=== PATIENT | female | born 1980 ===

== ENCOUNTER 2016-10-26 22:06 | Emergency (ER) | payer MEDICAID ==
[2016-10-26 22:06] VITALS: BMI 39.6
[2016-10-26 22:28] VITALS: TEMP 98.3; O2SAT 100
[2016-10-26] MEDS ORDERED: Sodium Chloride 0.9% 1,000 ML IV ONE (23:41)
--- NOTE | 2016-10-26 23:41 | C.PDOC ---
History Of Present Illness Patient presents to the ER with a complaint of nausea, vomiting and abdominal pain since 17:00 after eating fried chicken. Patient denies fever, chills or diarrhea. Time Seen by Provider: 10/26/16 23:40 Chief Complaint (Nursing): Abdominal Pain History Per: Patient History/Exam Limitations: no limitations Onset/Duration Of Symptoms: Days (5) Current Symptoms Are (Timing): Still Present Context: Food (Fried Chicken) Severity: Mild Pain Scale Rating Of: 4 Location Of Pain/Discomfort: Diffuse Radiation Of Pain To:: None Quality Of Discomfort: Unable To Describe Associated Symptoms: Nausea, Vomiting. denies: Fever, Chills, Diarrhea Exacerbating Factors: None Alleviating Factors: None Recent travel outside of the [place]: No Abnormal Vaginal Bleeding: No Past Medical History Reviewed: Historical Data, Nursing Documentation, Vital Signs Vital Signs: Last Vital Signs Temp 98.3 F 10/26/16 22:23 Pulse 95 H 10/27/16 01:48 Resp 18 10/27/16 01:48 BP 116/79 10/27/16 01:48 Pulse Ox 100 10/27/16 01:48 - Medical History PMH: No Chronic Diseases Surgical History: Tonsillectomy, - [facility] Procedures BILAT TUBAL DIVISION NEC (12/15/12) LOW CERVICAL (12/15/12) OTH LYSIS-PERITONEAL ADHES (12/15/12) OTHER SKIN & SUBQ I D (07/21/13) TETANUS TOXOID ADMINIST (07/21/13) Family History: States: No Known Family Hx - Social History Hx Tobacco Use: No Hx Alcohol Use: Yes Hx Substance Use: No - Immunization History Hx Tetanus Toxoid Vaccination: No Hx Influenza Vaccination: No Hx Pneumococcal Vaccination: No Review Of Systems Constitutional: Negative for: Fever, Chills Gastrointestinal: Positive for: Nausea, Vomiting, Abdominal Pain. Negative for : Diarrhea Physical Exam - Physical Exam Appears: Non-toxic Skin: Warm, Dry Oral Mucosa: Moist Chest: Symmetrical, No Tenderness Cardiovascular: Rhythm Regular, No Murmur Respiratory: No Rales, No Rhonchi, No Wheezing Gastrointestinal/Abdominal: Soft, Tenderness (Mid epigastric), No Guarding, No Rebound Neurological/Psych: Oriented x3 ED Course And Treatment - Laboratory Results Result Diagrams: 10/26/16 23:44 10/26/16 23:44 O2 Sat by Pulse Oximetry: 100 (Room air) Progress Note: CT abd/pel with IV contrast ordered. Pepcid, zofran and IV fluids administered. Disposition Counseled Patient/Family Regarding: Studies Performed, Diagnosis, Need For Followup, Rx Given - Disposition Referrals: [facility] [Outside] [facility] [Outside] Disposition: HOME/ ROUTINE Disposition Time: 23:41 Condition: FAIR Prescriptions: Metronidazole [Flagyl] 500 mg PO TID #21 tablet Pantoprazole Sodium [Protonix] 20 mg PO DAILY #10 ect Instructions: Abdominal Pain (ED), Gas and Bloating (ED), Gastritis (DC) - Clinical Impression Clinical Impression: Abdominal pain, Gastritis - Scribe Statement The provider has reviewed the documentation as recorded by the Scribnatty Adler All medical record entries made by the Jonahibnatty were at my direction and personally dictated by me. I have reviewed the chart and agree that the record accurately reflects my personal performance of the history, physical exam, medical decision making, and the department course for this patient. I have also personally directed, reviewed, and agree with the discharge instructions and disposition.
[2016-10-26] MEDS ORDERED: Sodium Chloride 0.9% 1,000 ML ONE (23:45)
[2016-10-26 23:46] LABS: BASO # 0.1 K/uL (0.0-0.2); BASO % 0.7 % (0.0-2.0); EOS # 0.1 K/uL (0.0-0.7); EOS % 0.8 % (0.0-4.0); HEMATOCRIT 37.9 % (34.0-47.0); LYMPH # 2.9 K/uL (1.0-4.3); LYMPH % 18.1 % (20.0-40.0); MEAN CELL VOLUME 82.4 fL (81.0-99.0); MEAN CORPUSCULAR HEMOGLOBIN 27.2 pg (27.0-31.0); MEAN CORPUSCULAR HGB CONC 33.1 g/dL (33.0-37.0); MEAN PLATELET VOLUME 10.4 fL (7.2-11.7); MONO # 0.8 K/uL (0.0-0.8); MONO % 4.7 % (0.0-10.0)
[2016-10-26 23:58] LABS: CHLORIDE 100 mmol/L (98-107); POTASSIUM 3.9 mmol/L (3.6-5.2); SODIUM 136 mmol/L (132-148)
[2016-10-27] LABS: URINE BACTERIA FEW (<OCC); URINE BILIRUBIN NEGATIVE (NEGATIVE); URINE BLOOD NEGATIVE (NEGATIVE); URINE COLOR Yellow (YELLOW); URINE GLUCOSE (UA) NORMAL (Normal); URINE KETONE NEGATIVE (NEGATIVE); URINE LEUKOCYTE ESTERASE NEG Leu/uL (Negative); URINE PROTEIN NEGATIVE (NEGATIVE); URINE UROBILINOGEN NORMAL mg/dL (0.2-1.0); WBC URINE 3 /hpf (0-5)
[2016-10-27] LABS: GFR AFRICAN-AMERICAN > 60
[2016-10-27 00:01] LABS: ALB/GLOB RATIO 1.4 (1.0-2.1); ALKALINE PHOSPHATASE 78 U/L (38-126); ALT/SGPT 21 U/L (9-52); AST/SGOT 15 U/L (14-36); BILIRUBIN,TOTAL 0.5 mg/dL (0.2-1.3); BLOOD UREA NITROGEN 17 mg/dL (7-17); CARBON DIOXIDE 24 mmol/L (22-30); GLUCOSE,RANDOM 120 mg/dL (65-105); TOTAL PROTEIN 7.6 g/dL (6.3-8.3)
--- NOTE | 2016-10-27 01:37 | CT ---
EXAM: CT Abdomen and Pelvis With Intravenous Contrast CLINICAL HISTORY: 36 years old, female; Pain; Abdominal pain; Generalized; Additional info: Mid epigastric pain, HX hernia repair TECHNIQUE: Axial computed tomography images of the abdomen and pelvis with intravenous contrast. This CT exam was performed using one or more of the following dose reduction techniques: automated exposure control, adjustment of the mA and/or kV according to patient size, and/or use of iterative reconstruction technique. Coronal and sagittal reformatted images were created and reviewed. CONTRAST: 100 mL of VISIPAQUE 320 administered intravenously. EXAM DATE/TIME: 10/27/2016 12:09 AM COMPARISON: There are no prior studies for comparison. FINDINGS: Lower thorax: Heart size is normal urea there is atelectasis and scarring at the lung bases. There is a small hiatal hernia. ABDOMEN: Liver: unremarkable Gallbladder and bile ducts: The gallbladder is distended. There is a small calcified gallstone. Common bile duct is unremarkable. Pancreas: unremarkable Spleen: Spleen is unremarkable. There is an accessory spleen in the left upper quadrant. Adrenals: unremarkable Kidneys and ureters: unremarkable Stomach and bowel: Stomach is almost empty. Rotation is normal. Small bowel is mildly distended with fluid and air. There is no obstruction. Terminal ileum is unremarkable. Appendix is unremarkable.Colon is incompletely distended which limits evaluation. Appendix: See stomach and bowel PELVIS: Bladder: unremarkable Reproductive: Uterus and adnexal structures are unremarkable. ABDOMEN and PELVIS: Intraperitoneal space: There is no significant fluid.There is no free air. Bones/joints: There are early degenerative changes in the osseus structures. Soft tissues: There is a fat containing umbilical hernia. There is rectus diastases. Vasculature: Vascular structures are unremarkable. There are calcified phleboliths. Lymph nodes: There is shotty mesenteric adenopathy IMPRESSION: No acute solid visceral abnormality; mild ileus, no obstruction; distended gallbladder with small stone; rectus diastases and umbilical hernia Additional findings as described above.
[2016-10-27 01:49] VITALS: BP 116/79; PULSE 95; RESP 18
== END 2016-10-27 02:04 | disposition home or self-care (01) ==
LOC: C.ER 22:06
DX: K29.70 Gastritis, unspecified, without bleeding (principal); R10.13 Epigastric pain
CPT/HCPCS: 74177; 80053; 81001; 83690; 84703; 85025; 96361; 96374; 96375; 99284; J2405; J7040; Q9967

== ENCOUNTER 2016-10-31 02:24 | Emergency (ER) | payer MEDICAID ==
[2016-10-31 02:25] VITALS: BMI 39.6
[2016-10-31 02:34] VITALS: RESP 20; O2SAT 100
[2016-10-31] MEDS ORDERED: Belladonna-Phenobarbital ONE (02:55)
[2016-10-31] MEDS ORDERED: Aluminum Hydroxide/Magnesium Hydroxide Susp (30 mL) ONE (02:55)
[2016-10-31] MEDS ORDERED: Sodium Chloride 0.9% 1,000 ML ONE (02:56)
[2016-10-31] MEDS: Belladonna-Phenobarbital PO STA (03:09)
[2016-10-31] MEDS: Aluminum Hydroxide/Magnesium Hydroxide Susp (30 mL) PO STA (03:09)
[2016-10-31] MEDS: Sodium Chloride 0.9% 1,000 ML IV ONE (03:09)
--- NOTE | 2016-10-31 03:15 | C.PDOC ---
History Of Present Illness 36 year old female presents to ED with complaints of epigastric abdominal pain associated with nausea for few hours. Patient reports pain feels burning and sensation of bloating or knot in stomach. Patient states she was seen in ED few days ago for similar symptoms and has been taking the medications given. She denies any fever, vomiting, diarrhea, dysuria. Time Seen by Provider: 10/31/16 02:37 Chief Complaint (Nursing): Abdominal Pain History Per: Patient History/Exam Limitations: no limitations Onset/Duration Of Symptoms: Hrs (few hours) Current Symptoms Are (Timing): Still Present Context: Other Severity: Mild Pain Scale Rating Of: 3 Location Of Pain/Discomfort: Epigastric Radiation Of Pain To:: None Quality Of Discomfort: Burning, "Pain", Other (bloating sensation) Associated Symptoms: Nausea Exacerbating Factors: None Alleviating Factors: None Last Bowel Movement: Today Recent travel outside of the [place]: No Past Medical History Reviewed: Historical Data, Nursing Documentation, Vital Signs Vital Signs: Last Vital Signs Temp 97.6 F 10/31/16 02:32 Pulse 89 10/31/16 02:32 Resp 20 10/31/16 02:32 BP 132/84 10/31/16 02:32 Pulse Ox 100 10/31/16 04:28 Surgical History: Tonsillectomy, - [facility] Procedures BILAT TUBAL DIVISION NEC (12/15/12) LOW CERVICAL (12/15/12) OTH LYSIS-PERITONEAL ADHES (12/15/12) OTHER SKIN & SUBQ I D (07/21/13) TETANUS TOXOID ADMINIST (07/21/13) Family History: States: Unknown Family Hx - Social History Hx Tobacco Use: No Hx Alcohol Use: Yes Hx Substance Use: No - Immunization History Hx Tetanus Toxoid Vaccination: No Hx Influenza Vaccination: No Hx Pneumococcal Vaccination: No Review Of Systems Except As Marked, All Systems Reviewed And Found Negative. Constitutional: Negative for: Fever Gastrointestinal: Positive for: Nausea, Abdominal Pain (epigastric). Negative for: Vomiting Genitourinary: Negative for: Dysuria Physical Exam - Physical Exam Appears: Non-toxic, No Acute Distress Skin: Warm, Dry Head: Atraumatic, Normacephalic Neck: Normal ROM, Supple Chest: Symmetrical Cardiovascular: Rhythm Regular Respiratory: Normal Breath Sounds, No Rales, No Rhonchi, No Wheezing Gastrointestinal/Abdominal: Soft, Tenderness (epigastric), No Guarding, No Rebound Back: Normal Inspection, No CVA Tenderness Extremity: Normal ROM Neurological/Psych: Oriented x3, Normal Speech, Normal Cognition Gait: Steady ED Course And Treatment - Laboratory Results Result Diagrams: 10/31/16 03:12 10/31/16 03:12 O2 Sat by Pulse Oximetry: 100 (room air) Pulse Ox Interpretation: Normal Medical Decision Making Medical Decision Making: Impression: 36 y/o female with epigastric abdominal pain Plan: * Labs * IV NS * Obstructive series xray Prior record reviewed, patient was last seen 10/26/16 for abdominal pain with labs and CT performed. Patient was discharged with Rx Protonix and Flagyl Progress: Labs reviewed and unremarkable, improved WBC since last ER visit. XRay shows fecal retention, no air fluid levels or other abnormality. Upon reevaluation patient reports pain has much improved and admits she has had hard stools, no rectal pain. Will prescribe colace and recommend increase in fluids, fiber and exercise. Patient feels comfortable going home and will be discharged. Patient given follow up instructions. Disposition Counseled Patient/Family Regarding: Studies Performed, Diagnosis, Need For Followup, Rx Given - Disposition Referrals: [facility] [Outside] [facility] [Outside] Disposition: HOME/ ROUTINE Disposition Time: 04:15 Condition: IMPROVED Additional Instructions: Continue taking the protonix and flagyl as prescribed Take stool softener up to 3 times per day to help with bowel movements Drink plenty of water and increase fiber intake Follow up with your primary medical doctor or clinic Prescriptions: Docusate [Colace] 100 mg PO Q8 PRN #60 cap PRN Reason: Constipation Instructions: Constipation (DC), Diet for Ulcers and Gastritis (ED) - POA Present On Arrival: None - Clinical Impression Clinical Impression: Gastritis, Constipation, Epigastric abdominal pain - PA / ELEVATOR TECHNICIAN / Resident Statement MD/DO has reviewed & agrees with the documentation as recorded. - Scribe Statement The provider has reviewed the documentation as recorded by the Scribe Shirley Costa All medical record entries made by the Scribe were at my direction and personally dictated by me. I have reviewed the chart and agree that the record accurately reflects my personal performance of the history, physical exam, medical decision making, and the department course for this patient. I have also personally directed, reviewed, and agree with the discharge instructions and disposition.
[2016-10-31 03:18] LABS: BASO # 0.1 K/uL (0.0-0.2); BASO % 0.9 % (0.0-2.0); EOS # 0.2 K/uL (0.0-0.7); HEMATOCRIT 39.4 % (34.0-47.0); LYMPH # 2.8 K/uL (1.0-4.3); LYMPH % 28.2 % (20.0-40.0); MEAN CELL VOLUME 83.3 fL (81.0-99.0); MEAN CORPUSCULAR HEMOGLOBIN 27.1 pg (27.0-31.0); MEAN CORPUSCULAR HGB CONC 32.5 g/dL (33.0-37.0); MEAN PLATELET VOLUME 10.6 fL (7.2-11.7); MONO # 0.6 K/uL (0.0-0.8); MONO % 5.7 % (0.0-10.0)
[2016-10-31 03:26] LABS: CHLORIDE 102 mmol/L (98-107); POTASSIUM 3.8 mmol/L (3.6-5.2); SODIUM 138 mmol/L (132-148)
[2016-10-31 03:28] LABS: BILIRUBIN,TOTAL 0.7 mg/dL (0.2-1.3); GFR AFRICAN-AMERICAN > 60
[2016-10-31 03:29] LABS: ALB/GLOB RATIO 1.5 (1.0-2.1); ALKALINE PHOSPHATASE 90 U/L (38-126); ALT/SGPT 28 U/L (9-52); AST/SGOT 59 U/L (14-36); BLOOD UREA NITROGEN 18 mg/dL (7-17); CALCIUM 8.6 mg/dl (8.6-10.4); CARBON DIOXIDE 25 mmol/L (22-30); GLUCOSE,RANDOM 124 mg/dL (65-105); TOTAL PROTEIN 6.9 g/dL (6.3-8.3)
[2016-10-31 03:57] LABS: RBC URINE 2 /hpf (0-3); URINE BACTERIA OCC (<OCC); URINE BILIRUBIN NEGATIVE (NEGATIVE); URINE BLOOD NEGATIVE (NEGATIVE); URINE COLOR Yellow (YELLOW); URINE GLUCOSE (UA) NORMAL (Normal); URINE KETONE TRACE mg/dL (NEGATIVE); URINE LEUKOCYTE ESTERASE 1+ Leu/uL (Negative); URINE PROTEIN NEGATIVE (NEGATIVE); URINE UROBILINOGEN NORMAL mg/dL (0.2-1.0); WBC URINE 11 /hpf (0-5)
[2016-10-31 04:33] VITALS: BP 103/66; PULSE 67; TEMP 98
--- NOTE | 2016-10-31 08:34 | RAD ---
PROCEDURE: Radiographs of the chest and abdomen (obstructive series) HISTORY: abd pain COMPARISON: No prior. TECHNIQUE: AP radiograph of the chest, with upright and supine radiographs of the abdomen. FINDINGS: CHEST: Lungs: Clear. Cardiovascular: Normal size heart. No pulmonary vascular congestion. Pleura: No pleural fluid. No pneumothorax. Other findings: None. ABDOMEN AND PELVIS: Bowel: Moderate retained feces. No evidence of bowel obstruction. No hepatic or splenic enlargement. Free air: None. Bones: Unremarkable. Other findings: None. IMPRESSION: Moderate retained feces. Possible constipation. Otherwise unremarkable.
== END 2016-10-31 04:45 | disposition home or self-care (01) ==
LOC: C.ER 02:24
DX: K29.70 Gastritis, unspecified, without bleeding (principal); K59.00 Constipation, unspecified
CPT/HCPCS: 74022; 80053; 81001; 83690; 85025; 96361; 96374; 96375; 99284; J2405; J7040

== ENCOUNTER 2017-01-18 06:19 | Day surgery (SDC) | payer MEDICAID ==
[2017-01-18 06:46] VITALS: BMI 34.9
[2017-01-18] MEDS ORDERED: Propofol 10 mg/ml Inj (20 ML) ONE (07:55)
[2017-01-18] MEDS ORDERED: Lactated Ringer's 500 ML IV SCH (08:15)
[2017-01-18 08:22] VITALS: TEMP 98.9
[2017-01-18 08:38] VITALS: O2SAT 100
[2017-01-18 09:16] VITALS: BP 110/80; PULSE 69; RESP 18
== END 2017-01-18 09:12 | disposition home or self-care (01) ==
LOC: C.ENDO 06:19
PROVIDERS: ATTEND Internal Medicine
DX: K29.50 Unspecified chronic gastritis without bleeding (principal); K21.9 Gastro-esophageal reflux disease without esophagitis; K59.00 Constipation, unspecified; K80.20 Calculus of gallbladder without cholecystitis without obstruction; R01.1 Cardiac murmur, unspecified; Z98.890 Other specified postprocedural states; Z98.51 Tubal ligation status; Z79.899 Other long term (current) drug therapy
CPT/HCPCS: 43239; 84703; 88305; J2704; J3010; J7120

== ENCOUNTER 2017-01-19 20:10 | Emergency (ER) | payer MEDICAID ==
[2017-01-19 20:10] VITALS: BMI 34.9
[2017-01-19 20:29] VITALS: TEMP 98.2; O2SAT 100
[2017-01-19] MEDS ORDERED: Sodium Chloride 0.9% 1,000 ML IV ONE (20:37)
[2017-01-19] MEDS ORDERED: Sodium Chloride 0.9% 250 ML IV ONE (20:47)
[2017-01-19] MEDS ORDERED: Sodium Chloride 0.9% 1,000 ML ONE (20:47)
--- NOTE | 2017-01-19 20:48 | C.PDOC ---
History Of Present Illness 36 year old female presents to the ED with complaints of chills and epigastric pain that radiates to both sides of the upper backc. Patient notes a history of gall bladder disease and abdominal pain. She was last seen in ED in October 2016 and referred to a melter loader. Patient was scheduled to have gall bladder removed and had an upper endoscopy yesterday. Endoscopy showed diffuse gastritis and a work up was performed to rule out H. pylori and Celiac disease. Patient's work up was negative and patient was instructed to follow a bland diet upon discharge home. She was able to tolerate bland chicken and rice today. Patient denies fever, nausea, or vomiting. Time Seen by Provider: 01/19/17 20:30 Chief Complaint (Nursing): Abdominal Pain History Per: Patient History/Exam Limitations: no limitations Onset/Duration Of Symptoms: Persistent Current Symptoms Are (Timing): Still Present Location Of Pain/Discomfort: Epigastric Radiation Of Pain To:: Back Quality Of Discomfort: "Pain" Associated Symptoms: Chills. denies: Fever, Nausea, Vomiting, Diarrhea Recent travel outside of the [place]: No Additional History Per: Prior Records Abnormal Vaginal Bleeding: No Past Medical History Reviewed: Historical Data, Nursing Documentation, Vital Signs Vital Signs: Last Vital Signs Temp 98.2 F 01/19/17 20:25 Pulse 89 01/19/17 20:25 Resp 20 01/19/17 20:25 BP 130/87 01/19/17 20:25 Pulse Ox 100 01/19/17 20:51 - Medical History PMH: Gastritis Surgical History: Tonsillectomy, - [facility] Procedures BILAT TUBAL DIVISION NEC (12/15/12) LOW CERVICAL (12/15/12) OTH LYSIS-PERITONEAL ADHES (12/15/12) OTHER SKIN & SUBQ I D (07/21/13) TETANUS TOXOID ADMINIST (07/21/13) Family History: States: Unknown Family Hx - Social History Hx Tobacco Use: No Hx Alcohol Use: Yes Hx Substance Use: No - Immunization History Hx Tetanus Toxoid Vaccination: No Hx Influenza Vaccination: No Hx Pneumococcal Vaccination: No Review Of Systems Constitutional: Positive for: Chills. Negative for: Fever Cardiovascular: Negative for: Chest Pain, Palpitations Respiratory: Negative for: Cough, Shortness of Breath Gastrointestinal: Positive for: Abdominal Pain. Negative for: Nausea, Vomiting , Diarrhea Musculoskeletal: Positive for: Back Pain Physical Exam - Physical Exam Appears: Non-toxic, No Acute Distress Skin: Warm, Dry Head: Atraumatic Eye(s): bilateral: Normal Inspection, EOMI Oral Mucosa: Moist Neck: Supple Chest: Symmetrical, No Deformity Cardiovascular: Rhythm Regular Respiratory: Normal Breath Sounds, No Rhonchi, No Wheezing Gastrointestinal/Abdominal: Bowel Sounds (good bowel sounds), Soft, Tenderness ( center epigastric tenderness), No Distention, No Guarding, No Rebound Back: No CVA Tenderness, No Vertebral Tenderness, No Paraspinal Tenderness Extremity: Normal ROM, No Tenderness Neurological/Psych: Oriented x3, Normal Speech, Normal Cognition ED Course And Treatment - Laboratory Results Result Diagrams: 01/19/17 20:59 01/19/17 20:59 Lab Interpretation: Normal O2 Sat by Pulse Oximetry: 100 (room air ) Pulse Ox Interpretation: Normal Progress Note: Labs were ordered and patient was given Pepcid and IV fluids. Reevaluation Time: 21:55 Reassessment Condition: Improved (Feels better after Pepcid and IV fluids) Disposition - Disposition Disposition: HOME/ ROUTINE Disposition Time: 21:56 Condition: IMPROVED Instructions: Epigastric Pain (ED) Forms: [facility] (Occitan), General Discharge Instructions - Clinical Impression Clinical Impression: Epigastric abdominal pain, Status post endoscopy - Scribe Statement The provider has reviewed the documentation as recorded by the Scribnatty Syed All medical record entries made by the Jonahibe were at my direction and personally dictated by me. I have reviewed the chart and agree that the record accurately reflects my personal performance of the history, physical exam, medical decision making, and the department course for this patient. I have also personally directed, reviewed, and agree with the discharge instructions and disposition.
[2017-01-19 21:03] LABS: BASO # 0.1 K/uL (0.0-0.2); BASO % 0.9 % (0.0-2.0); EOS # 0.2 K/uL (0.0-0.7); HEMATOCRIT 38.4 % (34.0-47.0); LYMPH # 4.1 K/uL (1.0-4.3); LYMPH % 36.1 % (20.0-40.0); MEAN CELL VOLUME 82.3 fL (81.0-99.0); MEAN CORPUSCULAR HEMOGLOBIN 27.4 pg (27.0-31.0); MEAN CORPUSCULAR HGB CONC 33.2 g/dL (33.0-37.0); MEAN PLATELET VOLUME 10.4 fL (7.2-11.7); MONO # 0.7 K/uL (0.0-0.8); MONO % 6.4 % (0.0-10.0); RED CELL DISTRIBUTION WIDTH 14.6 % (11.5-14.5); WHITE BLOOD COUNT 11.4 K/uL (4.8-10.8)
[2017-01-19 21:09] LABS: CHLORIDE 102 mmol/L (98-107)
[2017-01-19 21:10] LABS: SODIUM 140 mmol/L (132-148)
[2017-01-19 21:11] LABS: POTASSIUM 3.9 mmol/L (3.6-5.2)
[2017-01-19 21:13] LABS: ALB/GLOB RATIO 1.2 (1.0-2.1); ALKALINE PHOSPHATASE 75 U/L (38-126); ALT/SGPT 25 U/L (9-52); AST/SGOT 14 U/L (14-36); BILIRUBIN,TOTAL 0.5 mg/dL (0.2-1.3); BLOOD UREA NITROGEN 16 mg/dL (7-17); CARBON DIOXIDE 25 mmol/L (22-30); GFR AFRICAN-AMERICAN > 60; TOTAL PROTEIN 7.6 g/dL (6.3-8.3)
[2017-01-19 21:14] LABS: CALCIUM 9.5 mg/dl (8.6-10.4); GLUCOSE,RANDOM 82 mg/dL (65-105)
[2017-01-19 22:06] VITALS: BP 110/75; PULSE 72; RESP 16
== END 2017-01-19 22:20 | disposition home or self-care (01) ==
LOC: C.ER 20:10
DX: R10.13 Epigastric pain (principal); Z98.890 Other specified postprocedural states
CPT/HCPCS: 80053; 83690; 85025; 96361; 96374; 99284; J7040

== ENCOUNTER 2017-07-27 09:27 | Emergency (ER) | payer MEDICAID ==
[2017-07-27 09:40] VITALS: BMI 36.2
[2017-07-27 09:42] VITALS: BP 134/83; PULSE 83; RESP 18; TEMP 98; O2SAT 98
--- NOTE | 2017-07-27 10:02 | C.PDOC ---
History Of Present Illness Pt states she has a painful lump on left leg that got better but still a little painful. Time Seen by Provider: 07/27/17 09:44 Chief Complaint (Nursing): Abnormal Skin Integrity History Per: Patient Onset/Duration Of Symptoms: Days (about 1 week) Current Symptoms Are (Timing): Better Location Of Injury: Left: Leg Quality Of Symptoms: Painful, Itching, Swollen, Draining Severity: Mild Additional History Per: Prior Records Past Medical History Reviewed: Historical Data, Nursing Documentation, Vital Signs Vital Signs: Last Vital Signs Temp 98.0 F 07/27/17 09:38 Pulse 83 07/27/17 09:38 Resp 18 07/27/17 09:38 BP 134/83 07/27/17 09:38 Pulse Ox 98 07/27/17 09:38 - Medical History PMH: No Chronic Diseases, Gastritis Surgical History: Tonsillectomy, - [facility] Procedures BILAT TUBAL DIVISION NEC (12/15/12) LOW CERVICAL (12/15/12) OTH LYSIS-PERITONEAL ADHES (12/15/12) OTHER SKIN & SUBQ I D (07/21/13) TETANUS TOXOID ADMINIST (07/21/13) Family History: States: Unknown Family Hx - Social History Hx Tobacco Use: No Hx Alcohol Use: Yes Hx Substance Use: No - Immunization History Hx Tetanus Toxoid Vaccination: No Hx Influenza Vaccination: No Hx Pneumococcal Vaccination: No Review Of Systems Except As Marked, All Systems Reviewed And Found Negative. Constitutional: Negative for: Fever, Weakness Cardiovascular: Negative for: Chest Pain Respiratory: Negative for: Shortness of Breath Gastrointestinal: Negative for: Vomiting, Abdominal Pain Musculoskeletal: Negative for: Neck Pain, Foot Pain Neurological: Negative for: Weakness, Numbness Physical Exam - Physical Exam Appears: Non-toxic, No Acute Distress Skin: Normal Color, Warm, Dry Head: Atraumatic, Normacephalic Eye(s): bilateral: Normal Inspection, PERRL, EOMI Neck: Normal ROM, Supple Extremity: Normal ROM, No Calf Tenderness, Capillary Refill (wnl), Other (small area of induration on left lateral lower leg with a center on a hair follicle) Pulses: Left Dorsalis Pedis: Normal Neurological/Psych: Oriented x3, Normal Motor, Normal Sensation ED Course And Treatment O2 Sat by Pulse Oximetry: 98 Pulse Ox Interpretation: Normal Progress Note: I lanced the lesion on left leg with a 19g needle after cleaning with Betadine, however no discharge was expressed. Disposition Counseled Patient/Family Regarding: Diagnosis, Need For Followup, Rx Given - Disposition Disposition: HOME/ ROUTINE Disposition Time: 10:03 Condition: STABLE Additional Instructions: Follow up with your doctor. Return to the ER if you develop fever, chills, redness, swelling, worsening of symptoms or if you have any other concerns. Prescriptions: Sulfamethoxazole/Trimethoprim [Bactrim DS 800 mg-160 mg] 1 tab PO BID #14 tab Instructions: Boil (DC) Forms: [facility] (Spanish) - Clinical Impression Clinical Impression: Skin lesion of left leg
== END 2017-07-27 10:17 | disposition home or self-care (01) ==
LOC: C.ER 09:27
DX: L98.9 Disorder of the skin and subcutaneous tissue, unspecified (principal)

== ENCOUNTER 2017-11-04 20:45 | Emergency (ER) | payer MEDICAID ==
[2017-11-04 20:45] VITALS: BMI 34.9
[2017-11-04 21:09] VITALS: BP 136/85; PULSE 82; RESP 20; TEMP 98.2; O2SAT 100
--- NOTE | 2017-11-04 21:44 | C.PDOC ---
History Of Present Illness 37 yo female c/o right foot pain since yesterday. PT notes she was going down the stairs and twisted her foot and heard a "pop". Notes she felt ok at the time but foot became more swollen prompting ED visit. No change in sensation. No other injury. Time Seen by Provider: 11/04/17 21:15 Chief Complaint (Nursing): Lower Extremity Problem/Injury History Per: Patient History/Exam Limitations: no limitations Onset/Duration Of Symptoms: Days (1) Current Symptoms Are (Timing): Still Present Recent travel outside of the [place]: No Additional History Per: Patient - Ankle/Foot Description Of Injury: Twisted Currently Unable To: Bend Or Move Past Medical History Reviewed: Historical Data, Nursing Documentation, Vital Signs Vital Signs: Last Vital Signs Temp 98.2 F 11/04/17 21:05 Pulse 82 11/04/17 21:05 Resp 20 11/04/17 21:05 BP 136/85 11/04/17 21:05 Pulse Ox 100 11/04/17 22:14 - Medical History PMH: Gastritis Denies: Chronic Kidney Disease Surgical History: Tonsillectomy, - [facility] Procedures BILAT TUBAL DIVISION NEC (12/15/12) LOW CERVICAL (12/15/12) OTH LYSIS-PERITONEAL ADHES (12/15/12) OTHER SKIN & SUBQ I D (07/21/13) TETANUS TOXOID ADMINIST (07/21/13) Family History: States: Unknown Family Hx - Social History Hx Tobacco Use: No Hx Alcohol Use: Yes Hx Substance Use: No - Immunization History Hx Tetanus Toxoid Vaccination: No Hx Influenza Vaccination: No Hx Pneumococcal Vaccination: No Review Of Systems Except As Marked, All Systems Reviewed And Found Negative. Constitutional: Negative for: Fever, Chills Gastrointestinal: Negative for: Nausea, Vomiting Musculoskeletal: Positive for: Foot Pain Neurological: Negative for: Weakness, Numbness, Headache, Dizziness Physical Exam - Physical Exam Appears: Well, Non-toxic, No Acute Distress Skin: Warm, Dry Head: Atraumatic, Normacephalic Eye(s): bilateral: Normal Inspection, EOMI Nose: Normal Neck: Normal, Supple Chest: Symmetrical Respiratory: No Accessory Muscle Use Back: Normal Inspection Extremity: Normal ROM, Tenderness ((+) lateral foot tenderness with swelling and ecchymosis ), Capillary Refill (< 2 sec), Swelling Extremity: Bilateral: Normal ROM Pulses: Left Dorsalis Pedis: Normal, Right Dorsalis Pedis: Normal Neurological/Psych: Oriented x3, Normal Speech, Normal Motor, Normal Sensation ED Course And Treatment O2 Sat by Pulse Oximetry: 100 (ON RA) Pulse Ox Interpretation: Normal Progress Note: Pt declined pain medication. Hugh wrap and cast shoe applied. Pt declined crutches. Instructed RICE and follow up with ortho in 1-2 days. Disposition - Disposition Referrals: Henok Gonzalez III, MD [Staff Provider] - Disposition: HOME/ ROUTINE Disposition Time: 21:43 Condition: STABLE Additional Instructions: Rest, ice and elevate. Follow up with bone doctor in 1-2 days. Return to ER if symptoms persist or worsen. Instructions: Foot Sprain (DC) Forms: [facility] (Lithuanian), Work Excuse - Clinical Impression Clinical Impression: Foot sprain
--- NOTE | 2017-11-05 09:01 | RAD ---
PROCEDURE: Right Foot Radiographs. HISTORY: trauma COMPARISON: None. FINDINGS: BONES: Inferior calcaneal spur. . No fracture. JOINTS: Normal. SOFT TISSUES: Possible minimal lateral soft tissue swelling midfoot level OTHER FINDINGS: None. IMPRESSION: No fracture. Inferior calcaneal spur
== END 2017-11-04 22:06 | disposition home or self-care (01) ==
LOC: C.ER 20:45
DX: S93.601A Unspecified sprain of right foot, initial encounter (principal); X50.1XXA Overexertion from prolonged static or awkward postures, initial encounter; Y92.89 Other specified places as the place of occurrence of the external cause

== ENCOUNTER 2017-11-06 20:12 | Emergency (ER) | payer MEDICAID ==
[2017-11-06 20:13] VITALS: BMI 34.9
[2017-11-06 20:42] VITALS: RESP 20; O2SAT 100
--- NOTE | 2017-11-06 21:26 | C.PDOC ---
History Of Present Illness 37 y/o female presents to ED with c/o epigastric abdominal pain developed after having cheeseburger earlier today. Patient states pain radiates outward and is worse with movement. Patient admits to nausea and denies vomiting, diarrhea, back pain, fever, chills or any other complaints at this time. Time Seen by Provider: 11/06/17 21:06 Chief Complaint (Nursing): Abdominal Pain History Per: Patient History/Exam Limitations: no limitations Onset/Duration Of Symptoms: Days Current Symptoms Are (Timing): Still Present Location Of Pain/Discomfort: Epigastric Past Medical History Reviewed: Historical Data, Nursing Documentation, Vital Signs Vital Signs: Last Vital Signs Temp 97.7 F 11/06/17 22:32 Pulse 76 11/06/17 22:32 Resp 20 11/06/17 22:32 BP 113/73 11/06/17 22:32 Pulse Ox 100 11/06/17 22:36 - Medical History PMH: Gastritis Surgical History: Tonsillectomy, - [facility] BILAT TUBAL DIVISION NEC (12/15/12) LOW CERVICAL (12/15/12) OTH LYSIS-PERITONEAL ADHES (12/15/12) OTHER SKIN & SUBQ I D (07/21/13) TETANUS TOXOID ADMINIST (07/21/13) Family History: States: No Known Family Hx - Social History Hx Tobacco Use: No Hx Alcohol Use: Yes Hx Substance Use: No - Immunization History Hx Tetanus Toxoid Vaccination: No Hx Influenza Vaccination: No Hx Pneumococcal Vaccination: No Review Of Systems Constitutional: Negative for: Fever, Chills Gastrointestinal: Positive for: Nausea, Abdominal Pain. Negative for: Vomiting , Diarrhea Genitourinary: Negative for: Dysuria Musculoskeletal: Negative for: Back Pain Skin: Negative for: Rash Physical Exam - Physical Exam Appears: Non-toxic, No Acute Distress Skin: Warm, Dry, No Rash Head: Atraumatic, Normacephalic Eye(s): bilateral: Normal Inspection Oral Mucosa: Moist Neck: Normal ROM, Supple Cardiovascular: Rhythm Regular Respiratory: Normal Breath Sounds, No Rales, No Rhonchi, No Wheezing Gastrointestinal/Abdominal: Soft, Tenderness (Epigastric and RUQ), No Guarding, No Rebound Back: No CVA Tenderness, No Paraspinal Tenderness Neurological/Psych: Oriented x3, Normal Speech, Normal Cognition ED Course And Treatment - Laboratory Results Result Diagrams: 11/06/17 21:24 11/06/17 21:24 Lab Interpretation: No Acute Changes O2 Sat by Pulse Oximetry: 100 (RA) Pulse Ox Interpretation: Normal - CT Scan/US Abdominal US Other Rad Studies (CT/US): Read By Radiologist, Radiology Report Reviewed CT/US Interpretation: EXAM: US Abdomen Complete. CLINICAL HISTORY: 37 years old, female; Pain; Abdominal pain; Epigastric; Additional info: Abd pain. TECHNIQUE: Real-time ultrasound of the abdomen (complete) with image documentation. COMPARISON: CT - ABD PELVIS IV CONTRAST ONLY 2016-10-27 01:05. FINDINGS: Liver: Unremarkable. No mass. No intrahepatic bile duct dilation. 14.3 cm. Gallbladder: Solitary mobile gallstone. Common bile duct: Unremarkable as visualized. No stones. 3.7 mm. Pancreas: Unremarkable as visualized. Kidneys: Unremarkable. No stones. No solid mass. No hydronephrosis. RIGHT 11 cm x 4.5 cm x 4.5 cm. LEFT 4.5 cm x 5.1 cm x 10.5 cm. Spleen: Unremarkable. No splenomegaly. 9.8 cm. Aorta: Unremarkable. No aneurysm. 1.5 cm in. Inferior vena cava: Unremarkable. IMPRESSION: 1. Solitary gallstone. 2. Otherwise negative abdominal ultrasound. Reevaluation Time: 22:48 Reassessment Condition: Improved (after Bentyl.) Disposition Counseled Patient/Family Regarding: Studies Performed, Diagnosis, Need For Followup, Rx Given - Disposition Referrals: [facility] [Outside] Disposition: HOME/ ROUTINE Disposition Time: 22:53 Condition: IMPROVED Prescriptions: Dicyclomine [Bentyl] 20 mg PO QID PRN #20 tab PRN Reason: Pain, Severe (8-10) Instructions: Gallstones Forms: [facility] (American) - Clinical Impression Clinical Impression: Biliary colic - Scribe Statement The provider has reviewed the documentation as recorded by the Dayanara Cota All medical record entries made by the Jonahibnatty were at my direction and personally dictated by me. I have reviewed the chart and agree that the record accurately reflects my personal performance of the history, physical exam, medical decision making, and the department course for this patient. I have also personally directed, reviewed, and agree with the discharge instructions and disposition.
[2017-11-06 21:28] LABS: BASO # 0.1 K/uL (0.0-0.2); BASO % 1.2 % (0.0-2.0); EOS # 0.2 K/uL (0.0-0.7); EOS % 2.7 % (0.0-4.0); HEMOGLOBIN 11.5 g/dL (11.0-16.0); LYMPH # 3.4 K/uL (1.0-4.3); LYMPH % 39.2 % (20.0-40.0); MEAN CORPUSCULAR HEMOGLOBIN 25.4 pg (27.0-31.0); MEAN CORPUSCULAR HGB CONC 32.6 g/dL (33.0-37.0); MEAN PLATELET VOLUME 9.9 fL (7.2-11.7); MONO # 0.5 K/uL (0.0-0.8); MONO % 6.2 % (0.0-10.0); NEUT # 4.4 K/uL (1.8-7.0); NEUT % 50.7 % (50.0-75.0); NRBC % 0.1 % (0.0-2.0); RBC 4.54 Mil/uL (3.80-5.20); RED CELL DISTRIBUTION WIDTH 16.6 % (11.5-14.5); WHITE BLOOD COUNT 8.8 K/uL (4.8-10.8)
[2017-11-06 21:35] LABS: MEAN CELL VOLUME 77.8 fL (81.0-99.0)
[2017-11-06 21:38] LABS: SQUAMOUS EPITHIAL 9 /hpf (0-5); URINE BACTERIA FEW (<OCC); URINE BILIRUBIN NEGATIVE (NEGATIVE); URINE BLOOD NEGATIVE (NEGATIVE); URINE CLARITY Hazy (Clear); URINE COLOR Yellow (YELLOW); URINE GLUCOSE (UA) NORMAL (Normal); URINE LEUKOCYTE ESTERASE 1+ Leu/uL (Negative); URINE PROTEIN NEGATIVE (NEGATIVE); URINE UROBILINOGEN NORMAL mg/dL (0.2-1.0)
[2017-11-06 21:41] LABS: ALB/GLOB RATIO 1.4 (1.0-2.1); ALBUMIN 4.1 g/dL (3.5-5.0); ALT/SGPT 18 U/L (9-52); AST/SGOT 16 U/L (14-36); BLOOD UREA NITROGEN 15 mg/dL (7-17); CALCIUM 9.3 mg/dl (8.6-10.4); GFR AFRICAN-AMERICAN > 60; GFR NON-AFRICAN AMERICAN > 60; LIPASE 95 U/L (23-300)
[2017-11-06] MEDS ORDERED: Sodium Chloride 0.9% 1,000 ML IV ONE ×2 (22:15→22:25)
[2017-11-06] MEDS ORDERED: Sodium Chloride 0.9% 1,000 ML ONE (22:23)
[2017-11-06 22:33] VITALS: BP 113/73; PULSE 76; TEMP 97.7
--- NOTE | 2017-11-07 11:10 | US ---
Abdominal ultrasound History: Abdominal pain. Comparison: CT scan dated 10/27/2016 Technique: Real-time sonography was performed through the abdomen. Findings : Liver: 14.3 centimeters in length. Increased echogenicity of the hepatic parenchymal cortex suggestive for fatty infiltration versus hepatic parenchymal disease. Clinical correlation. Gallbladder: Solitary mobile gallbladder calculus noted at the level of the neck of the gallbladder. Normal wall thickness of 2 millimeters. Negative sonographic Ragland's sign. Common bile duct measures 4 millimeters, within normal limits. Limited visualization of the pancreas. Spleen measures 9.9 centimeters in length, within normal limits. Visualized aorta and IVC are preserved. Right kidney: 11.2 x 4.6 x 4.5 centimeters. No calculi or hydronephrosis. Left Kidney: 10.6 x 4.6 x 5.1 centimeters. No calculi or hydronephrosis. Impression: Solitary gallstone. Fatty infiltration of the liver. These findings were preliminarily reported at 10:32 p.m. on 11/06/[address] Luis Kelly from [facility].
== END 2017-11-06 23:15 | disposition home or self-care (01) ==
LOC: C.ER 20:12
DX: K80.50 Calculus of bile duct without cholangitis or cholecystitis without obstruction (principal)
CPT/HCPCS: 76700; 80053; 81001; 83690; 84703; 85025; 87086; 96360; 96372; 99284; J0500; J7030